=== PATIENT | female | born 1950 | race Caucasian/White ===

== ENCOUNTER → 2017-07-08 | Outpatient (CLI) | payer OTHER ==
--- NOTE | 2017-07-08 12:27 | KCIC ---
DATE: 07/08/2017 EXAM: MAMMO [facility] SCREENING BILATERAL HISTORY: Routine screening COMPARISON: 07/07/2016 This study was interpreted with the benefit of Computerized Aided Detection (CAD). FINDINGS: Breast Density: HETERO The breast parenchyma Is heterogeneouslyy dense, which could reduce sensitivity of mammography. Breast parenchyma level C. There is a questionable small focus of architectural distortion identified in the left upper lateral breast best seen on the MLO view. IMPRESSION: Questionable small focus of architectural distortion identified in the left upper breast best seen on the MLO view. Recommend spot compression views of the left breast. If this persists on spot compression view, a ultrasound is recommended BI-RADS CATEGORY: 0 INCOMPLETE: NEEDS ADDITIONAL IMAGING EVALUATION AND/OR PRIOR MAMMOGRAMS FOR COMPARISON. RECOMMENDED FOLLOW-UP: ADD ADDITIONAL IMAGING PQRS compliance statement: Patient information was entered into a reminder system with a target due date immediate recall for the next mammogram. Mammography is a sensitive method for finding small breast cancers, but it does not detect them all and is not a substitute for careful clinical examination. A negative mammogram does not negate a clinically suspicious finding and should not result in delay in biopsying a clinically suspicious abnormality. "Our facility is accredited by the [employer] Mammography [employer]."
== END | disposition home or self-care (01) ==
LOC: KCIC MAMMO 09:34
PROVIDERS: ATTEND Obstetrics & Gynecology
DX: Z12.31 Encounter for screening mammogram for malignant neoplasm of breast (principal)
CPT/HCPCS: 77063; G0202; 77067

== ENCOUNTER → 2017-07-15 | Outpatient (CLI) | payer OTHER ==
--- NOTE | 2017-07-15 11:12 | KCIC ---
DATE: July 15, 2017 EXAM: DIGITAL DIAGNOSTIC LT, BREAST LEFT HISTORY: Architectural distortion on one view 3-D mammogram COMPARISON: July 08, 2017 TECHNIQUE: Compression left CC and MLO views along with 2-D left ML view are provided. This study was interpreted with the benefit of Computerized Aided Detection (CAD). FINDINGS: The breast parenchyma is heterogeneously dense, category C, which may obscure small masses. Area of concern on screening mammogram dissipates on 2-D compression views. It has no correlate on the ML view. Ultrasound from 11-3 o'clock demonstrates no mass, area of architectural distortion, cyst, or skin thickening. Normal parenchymal tissue is noted. IMPRESSION: Area of architectural distortion noted on 3-D imaging is not reproduced on 2-D compression imaging and has no correlate on ultrasound. This is a probably benign finding. Six-month diagnostic left 3-D mammogram is recommended. BI-RADS CATEGORY: 3 PROBABLE BENIGN-SHORT TERM F/U RECOMMENDED FOLLOW-UP: 6M 6 MONTH FOLLOW-UP PQRS compliance statement: Patient information was entered into a reminder system with a target due date for the next mammogram. Mammography is a sensitive method for finding small breast cancers, but it does not detect them all and is not a substitute for careful clinical examination. A negative mammogram does not negate a clinically suspicious finding and should not result in delay in biopsying a clinically suspicious abnormality. "Our facility is accredited by the [employer] Mammography [employer]."
== END | disposition home or self-care (01) ==
LOC: KCIC MAMMO 09:49
PROVIDERS: ATTEND Obstetrics & Gynecology
DX: R92.8 Other abnormal and inconclusive findings on diagnostic imaging of breast (principal)
CPT/HCPCS: 76641; G0206; 77065

== ENCOUNTER → 2017-12-14 | Outpatient (CLI) | payer OTHER | END | disposition home or self-care (01) | LOC: KCIC MAMMO 09:36 | DX: R92.8 Other abnormal and inconclusive findings on diagnostic imaging of breast (principal) | CPT/HCPCS: 77065; G0279 ==

== ENCOUNTER → 2018-08-11 | Outpatient (CLI) | payer OTHER ==
--- NOTE | 2018-08-11 13:42 | KCIC ---
DATE: 08/11/2018 EXAM: MAMMO [facility] DIAG BILAT HISTORY: Right breast screening, 6 month left breast follow-up COMPARISON: 12/14/2017, 07/15/2017, 07/08/2017 This study was interpreted with the benefit of Computerized Aided Detection (CAD). Breast Density: HETERO The breast parenchyma is heterogenously dense, which could reduce sensitivity of mammography. Breast parenchyma level C. FINDINGS: 2-D and 3-D tomosynthesis imaging was performed in CC and MLO projections. No new or enlarging breast densities are seen. Benign type calcifications are again noted. No suspicious microcalcifications have developed. IMPRESSION: Stable mammograms without evidence of malignancy. BI-RADS CATEGORY: 2 BENIGN FINDING(S) RECOMMENDED FOLLOW-UP: 12M 12 MONTH FOLLOW-UP PQRS compliance statement: Patient information was entered into a reminder system with a target due date for the next mammogram. Mammography is a sensitive method for finding small breast cancers, but it does not detect them all and is not a substitute for careful clinical examination. A negative mammogram does not negate a clinically suspicious finding and should not result in delay in biopsying a clinically suspicious abnormality. "Our facility is accredited by the [employer] Mammography [employer]."
== END | disposition home or self-care (01) ==
LOC: KCIC MAMMO 09:09
PROVIDERS: ATTEND Obstetrics & Gynecology
DX: R92.8 Other abnormal and inconclusive findings on diagnostic imaging of breast (principal); R63.4 Abnormal weight loss
CPT/HCPCS: 77066; G0279; 77062

== ENCOUNTER → 2019-09-21 | Outpatient (CLI) | payer OTHER ==
--- NOTE | 2019-09-21 17:39 | KCIC ---
Bilateral digital screening mammograms with 3-D tomosynthesis: Reason for examination: Routine screening. Comparison is made to previous studies dated back to 07/07/2016. Bilateral mammograms in CC and oblique projections were obtained with 2-D imaging and 3-D tomosynthesis imaging on a Siemens Inspiration unit and reviewed on the workstation. Interpretation was made with the benefit of CAD. The skin and nipples show no abnormalities. No abnormal axillary lymph nodes are seen. The breast parenchyma is heterogeneously dense. (Breast density: Category C.) There continues to be small nodular density at the 8:00 B position of the right breast which is stable. There are no new dominant masses, suspicious calcifications or architectural distortion. Benign calcifications are present. Impression: No evidence of malignancy. Recommend routine screening. Your patient's mammogram demonstrates that she has dense breast tissue (breast density category C or D), which could hide abnormalities, and if she has other risk factors for breast cancer that have been identified, she might benefit from supplemental screening tests that may be suggested by you as her ordering physician. Dense breast tissue, in and of itself, is a relatively common condition. Therefore, this information is not provided to cause undue concern, but rather to raise your awareness and to promote discussion with your patient regarding the presence of other risk factors, in addition to dense breast tissue. Your patient's mammography results will be sent to her. BI-RAD Category 2: Benign. "Our facility is accredited by the [employer] Mammography [employer]." This patient's information has been entered into a reminder system for the patient to be notified with the results of her examination and a target date for the next mammogram. Electronically signed by: Kita Shukla MD (09/21/2019 5:36 PM) [email or web address]
== END | disposition home or self-care (01) ==
LOC: KCIC MAMMO 08:48
PROVIDERS: ATTEND Obstetrics & Gynecology
DX: Z12.31 Encounter for screening mammogram for malignant neoplasm of breast (principal)
CPT/HCPCS: 77063; 77067

== ENCOUNTER → 2020-10-08 | Outpatient (CLI) | payer OTHER ==
--- NOTE | 2020-10-08 10:34 | KCIC ---
Bilateral digital screening mammograms with 3-D tomosynthesis: Reason for examination: Routine screening. Comparison is made to previous studies dated back to 07/07/2016. Bilateral mammograms in CC and oblique projections were obtained with 2-D imaging and 3-D tomosynthes is imaging on a Siemens Inspiration unit and reviewed on the workstation. Interpretation was made wit h the benefit of CAD. The skin and nipples show no abnormalities. No abnormal axillary lymph nodes are seen. The breast par enchyma shows scattered fatty and fibroglandular density. (Breast density: Category B.) There are no dominant masses, suspicious calcifications or architectural distortion. Benign calcifications are pre sent. Impression: No evidence of malignancy. Recommend routine screening. BI-RAD Category 2: Benign. "Our facility is accredited by the [employer] Mammography [employer]." This patient's information has been entered into a reminder system for the patient to be notified wit h the results of her examination and a target date for the next mammogram. Electronically signed by: Kita Shukla MD (10/08/2020 10:32 AM) [email or web address]
== END ==
LOC: KCIC MAMMO 09:11
PROVIDERS: ATTEND Obstetrics & Gynecology
DX: Z12.31 Encounter for screening mammogram for malignant neoplasm of breast (principal)
CPT/HCPCS: 77063; 77067

== ENCOUNTER → 2021-11-12 | Outpatient (CLI) | payer OTHER, MEDICARE ==
--- NOTE | 2021-11-12 11:47 | KCIC ---
Bilateral digital screening mammograms with 3-D tomosynthesis: Reason for examination: Routine screening. Comparison is made to previous studies dated back to 07/08/2017. Bilateral mammograms in CC and oblique projections were obtained with 2-D imaging and 3-D tomosynthes is imaging on a Siemens Inspiration unit and reviewed on the workstation. CAD was not available for i nterpretation of this exam. The skin and nipples show no abnormalities. No abnormal axillary lymph nodes are seen. The breast par enchyma is heterogeneously dense. (Breast density: Category C.) There are no dominant masses, suspici ous calcifications or architectural distortion. Benign calcifications are present. Impression: No evidence of malignancy. Recommend routine screening. Your patient's mammogram demonstrates that she has dense breast tissue (breast density category C or D), which could hide abnormalities, and if she has other risk factors for breast cancer that have bee n identified, she might benefit from supplemental screening tests that may be suggested by you as her ordering physician. Dense breast tissue, in and of itself, is a relatively common condition. Therefo re, this information is not provided to cause undue concern, but rather to raise your awareness and t o promote discussion with your patient regarding the presence of other risk factors, in addition to d ense breast tissue. Your patient's mammography results will be sent to her. BI-RAD Category 2: Benign. "Our facility is accredited by the [employer] Mammography Program." This patient's information has been entered into a reminder system for the patient to be notified wit h the results of her examination and a target date for the next mammogram. Electronically signed by: Kita Shukla MD (11/12/2021 11:45 AM) [email or web address]
--- NOTE | 2021-11-12 16:11 | KCIC ---
EXAM: XR SHOULDER_RIGHT 2+ VIEWS 11/12/2021 10:27 AM CLINICAL INDICATION: Chronic right shoulder pain COMPARISON: None TECHNIQUE: 3 views of the right shoulder FINDINGS: No acute fracture. Alignment is normal. Mild acromioclavicular degenerative joint disease. Minimal glenohumeral degenerative joint disease with a tiny inferior humeral head osteophyte. The walls bacromial space is preserved. IMPRESSION: Mild acromioclavicular and minimal glenohumeral degenerative joint disease. Electronically signed by: Marian Navarro MD (11/12/2021 4:09 PM) [id number]
--- NOTE | 2021-11-12 16:12 | KCIC ---
Bone Densitometry History: Reason: MENOPAUSE OVARIAN FAILURE Findings: Bone Densitometry was performed with dual photon absorption of the lumbar spine and proximal femurs. Lumbar Spine: Bone density is 1.090 g/cm2 for L1-L4. T-score is 0.4. Z-score is 2.5. Left proximal femur: Bone density is 0.903 g/cm2. T-score is -0.3. Z-score is 1.2. IMPRESSION: Normal bone mineral density in the lumbar spine and left hip.. World Health Organization definition of osteoporosis and osteopenia for women: normal equal s T score at or above -1.0 standard deviations; osteopenia equals T score between -1.0 and -2.5 stand liana deviations; osteoporosis equals T score at or below -2.5 standard deviations. Electronically signed by: Marian Navarro MD (11/12/2021 4:10 PM) [id number]
== END ==
LOC: KCIC MAMMO 10:15
PROVIDERS: ATTEND Family Medicine
DX: Z12.31 Encounter for screening mammogram for malignant neoplasm of breast (principal); M19.011 Primary osteoarthritis, right shoulder; E28.39 Other primary ovarian failure; Z78.0 Asymptomatic menopausal state
CPT/HCPCS: 73030; 77063; 77067; 77080